=== PATIENT | female | born 1985 | race Two or more races ===

== ENCOUNTER 2020-04-02 00:04 | Emergency (ER) | payer BC, OTHER ==
[~2020-04-02] VITALS: Ht 152.4 cm; Wt 95.3 kg
[2020-04-02] MEDS ORDERED: ACETAMINOPHEN 325 MG TAB PO ONE (00:30)
[2020-04-02] MEDS ORDERED: SODIUM CHLORIDE 0.9% 1,000 ML IV ONE (00:45)
[2020-04-02 02:20] VITALS: BP 122/82
== END 2020-04-02 02:30 | disposition home or self-care (01) ==
LOC: ER 00:04
DX: H65.93 Unspecified nonsuppurative otitis media, bilateral (principal); H72.2X1 Other marginal perforations of tympanic membrane, right ear
CPT/HCPCS: 93005

== ENCOUNTER 2025-03-05 11:37 | Emergency (ER) | payer BC, MEDICAID ==
[~2025-03-05] VITALS: Ht 152.4 cm; Wt 86.3 kg
[2025-03-05 11:39] VITALS: TEMP 98.7
--- NOTE | 2025-03-05 11:50 | ECG ---
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
[2025-03-05 12:12] LABS: Hematocrit 40.6 % (36.0-46.0); Hemoglobin 14.7 g/dL (12.2-16.2); Mean Corpuscular Hemoglobin 32.1 pg (28.0-32.0); Mean Corpuscular Volume 88.6 fL (80.0-100.0); Nucleated Red Blood Cells % 0.1 %
[2025-03-05 12:28] LABS: Chloride 104 mmol/L (98-107); Potassium 4.0 mmol/L (3.5-5.1); Sodium 140 mmol/L (136-145)
[2025-03-05 12:29] LABS: Anion Gap 11 (5-15); Calcium 9.0 mg/dL (8.7-10.4); Carbon Dioxide 25 mmol/L (20-31)
--- NOTE | 2025-03-05 12:31 | ED.PDOC ---
History of Present Illness HPI Comments 39-year-old female presents with chief complaint of nonradiating, substernal chest pressure, shortness of breath, headache, and bilateral ear pain for the past 2 days. Significant history for diabetes-on metformin and fatty liver. Patient denies having any abdominal pain, nausea, vomiting, or further acute symptoms. 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 (Ovarian cyst removal) Family History Family History: Reviewed,noncontributory to illness Social History Smoker: Non-Smoker Alcohol: Denies ETOH Use Drugs: Denies Drug Use Lives In: Home All Other Systems: Reviewed and Negative (Comprehensive review of systems are negative unless stated in HPI) Physical Exam General Appearance: Moderate Distress HEENT: Normal ENT Inspection, Pharynx Normal, TMs Normal Neck: Full Range of Motion, Non-Tender, Normal, Normal Inspection Respiratory: Chest Non-Tender, Lungs Clear, No Accessory Muscle Use, No Respiratory Distress, Normal Breath Sounds Cardiovascular: No Edema, No JVD, No Murmur, No Gallop, Normal Peripheral Pulses, Regular Rate/Rhythm Breast Exam: Deferred Gastrointestinal: No Organomegaly, Non Tender, No Pulsatile Mass, Normal Bowel Sounds, Soft Genitalia: Deferred Pelvic: Deferred Rectal: Deferred Extremities: No calf tenderness, Normal capillary refill, Normal inspection, Normal range of motion, Non-tender, No pedal edema Musculoskeletal : Apperance: Normal 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 Was a procedure done?: No EKG EKG : Pulse Rate (adult): 78 [place]: Normal Cardiac Rhythm: NSR Block: None Hypertrophy: None ST: Normal Differential Dx Considerations may include: ID, PE, URI, pneumonia, ACS, CAD, angina, anxiety, gastritis, among others X-Ray, Labs, Meds, VS Vital Signs Date Time Temp Pulse Resp B/P (MAP) Pulse Ox O2 Delivery O2 Flow Rate FiO2 03/05/25 13:00 75 03/05/25 12:31 78 03/05/25 11:48 78 03/05/25 11:39 98.7 73 18 151/85 97 98.7 Lab Test 03/05/25 12:47 03/05/25 11:54 03/05/25 11:40 Range/Units Troponin I High Sensitivity < 3 L < 3 L </=34 ng/L White Blood Count 9.4 4.4-10.8 10^3/uL Red Blood Count 4.58 4.0-5.20 10^6/uL Hemoglobin 14.7 12.2-16.2 g/dL Hematocrit 40.6 36.0-46.0 % Mean Corpuscular Volume 88.6 80.0-100.0 fL Mean Corpuscular Hemoglobin 32.1 H 28.0-32.0 pg Mean Corpuscular Hemoglobin Concent 36.3 H 32.0-36.0 g/dL Red Cell Distribution Width 12.7 11.8-14.3 % Platelet Count 284 140-450 10^3/uL Mean Platelet Volume 8.0 6.9-10.8 fL Neutrophils (%) (Auto) 64.0 37.0-80.0 % Lymphocytes (%) (Auto) 29.4 10.0-50.0 % Monocytes (%) (Auto) 4.9 0.0-12.0 % Eosinophils (%) (Auto) 0.8 0.0-7.0 % Basophils (%) (Auto) 0.9 0.0-2.0 % Neutrophils # (Auto) 6.0 1.6-8.6 10 ^3/uL Lymphocytes # (Auto) 2.8 0.4-5.4 10 ^3/uL Monocytes # (Auto) 0.5 0-1.3 10 ^3/uL Eosinophils # (Auto) 0.1 0-0.8 10 ^3/uL Basophils # (Auto) 0.1 0-0.2 10 ^3/uL Nucleated Red Blood Cells 0.1 % Sodium Level 140 136-145 mmol/L Potassium Level 4.0 3.5-5.1 mmol/L Chloride Level 104 98-107 mmol/L Carbon Dioxide Level 25 20-31 mmol/L Anion Gap 11 5-15 Blood Urea Nitrogen 16 9-23 mg/dL Creatinine 0.81 0.550-1.02 mg/dL Glomerular Filtration Rate Calc 95 >90 mL/min BUN/Creatinine Ratio 19.8 10.0-20.0 Serum Glucose 200 H 74-106 mg/dL Calcium Level 9.0 8.7-10.4 mg/dL Urine Test Negative Negative [facility] [id number] [address] Ph: [phone] DIAGNOSTIC IMAGING Diagnostic Imaging Report : [id number] Signed PATIENT: BARNEY SARAH ACCT: [id number] UNIT: [id number] : 1985 LOC: ER ROOM / BED: / AGE / SEX: 39 / F ADM STATUS: REG ER SERVICE 1156 ORDERING PHYSICIAN: JUNIE LYLES MD PROCEDURE(s): CXRP - CHEST PORTABLE REASON: CP ORDER NUMBER(s): [id number], ACCESSION NUMBER(s): [id number] CHEST RADIOGRAPH Indication: CP Technique: Single frontal view of the chest was obtained Comparison: None FINDINGS: Lines and Tubes: None Lungs: No focal consolidation. Pleura: No effusion. No pneumothorax. Cardiomediastinal contours: Unremarkable Bones: No acute osseous abnormality. IMPRESSION: 1. No acute cardiopulmonary disease. ATED BY: DEANNA MCGUIRE MD DICTATED DATE/TIME: 03/05/251354 SIGNED BY: DEANNA MCGUIRE MD SIGNED DATE/TIME: 03/05/25 135 CC: Patient alert. Complaining of chest discomfort. Vitals stable. Answering questions. Cardiac marker within normal limits. Blood sugar slightly elevated. Possible musculoskeletal. WBC within normal limits. Hemoglobin within normal limits. No leg swelling. No discoloration. Explained to the patient. Was told to follow up with her primary care physician. Was told to come back if there is any problem. Time of 1ST Reevaluation: 12:00 Reevaluation 1ST: Improved Patient Education/Counseling: Diagnosis, Treatment Family Education/Counseling: No Family Present SEPSIS Sepsis Screen Date sepsis recognized/suspect: Mar 05, 2025 Time Sepsis recognized/suspect: 1141 Recent Procedure: No On Antibiotic Therapy: No Respiratory Rate >20: No Heart Rate >90: No Temp<36 C (96.8 F) or >38.3 C: No SBP <90 or MAP <65 mmHG: No New Acute Mental Status Change: No Is the patient on CPAP, BIPAP,: No Physician Orders Electrocardigram (03/05/25 12:42) Electrocardigram (03/05/25 14:42) Chest Portable (03/05/25 11:56) Vital Signs Date Time Temp Pulse Resp B/P (MAP) Pulse Ox O2 Delivery O2 Flow Rate FiO2 03/05/25 13:00 75 03/05/25 12:31 78 03/05/25 11:48 78 03/05/25 11:39 98.7 73 18 151/85 97 98.7 Laboratory Tests Test 03/05/25 11:54 White Blood Count 9.4 10^3/uL (4.4-10.8) Departure 1 Departure Time of Disposition: 14:48 Impression: Primary Impression: Uncontrolled diabetes mellitus Qualified Codes: E13.65 - Other specified diabetes mellitus with hyperglycemia Additional Impression: Musculoskeletal chest pain Disposition: 01 HOME / SELF CARE / HOMELESS Condition: Good Discharged With: Self Critical Care Note Critical Care Time?: No Stability Stability form required: No Heart Score Heart Score: Heart Score Response (Comments) Value History Moderate Suspicious 1 EKG Normal 0 Age <45 0 Risk Factors 1 or 2 risk factors 1 Troponin Normal limit 0 Total 2 I personally scribed for JUNIE LYLES MD ([email or web address]) on 03/05/25 at 12:31. Electronically submitted by Jimbo Jackson ([email or web address]). I personally scribed for JUNIE LYLES MD ([email or web address]) on 03/05/25 at 14:55. Electronically submitted by Jimbo Jackson ([email or web address]). JUNIE LYLES MD Mar 05, 2025 12:31
[2025-03-05 12:34] LABS: BUN/Creatinine Ratio 19.8 (10.0-20.0); Blood Urea Nitrogen 16 mg/dL (9-23)
[2025-03-05 12:36] LABS: Glucose 200 mg/dL (74-106)
--- NOTE | 2025-03-05 13:58 | DVH ---
CHEST RADIOGRAPH Indication: CP Technique: Single frontal view of the chest was obtained Comparison: None FINDINGS: Lines and Tubes: None Lungs: No focal consolidation. Pleura: No effusion. No pneumothorax. Cardiomediastinal contours: Unremarkable Bones: No acute osseous abnormality. IMPRESSION: 1. No acute cardiopulmonary disease.
[2025-03-05 15:05] VITALS: BP 139/71; PULSE 74; RESP 18; O2SAT 98
--- NOTE | 2025-03-05 18:24 | ECG ---
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
== END 2025-03-05 15:07 | disposition home or self-care (01) ==
LOC: ER 11:37
DX: E11.65 Type 2 diabetes mellitus with hyperglycemia (principal); R07.89 Other chest pain; Z98.890 Other specified postprocedural states; Z79.899 Other long term (current) drug therapy
CPT/HCPCS: 36415; 71045; 80048; 81025; 84484; 85025; 93005